=== PATIENT | female | born 1995 | race Caucasian/White ===

== ENCOUNTER → 2022-10-03 | Outpatient (CLI) | payer MEDICAID, SELFPAY | END | disposition home or self-care (01) | PROVIDERS: PCP Internal Medicine; Referring Provider Obstetrics & Gynecology; Visit Provider Obstetrics & Gynecology | DX: L29.9 Pruritus, unspecified (principal); I82.409 Acute embolism and thrombosis of unspecified deep veins of unspecified lower extremity | CPT/HCPCS: 36415 ==

== ENCOUNTER 2023-03-03 07:30 | Day surgery (SDC) | payer MEDICAID, SELFPAY ==
--- NOTE | 2023-03-03 07:40 | PCM.HP.BLA ---
History and Physical Date of Admission: 03/03/23 R#: [id number] Acct: [id number] Name: CALVIN ROE Rep #: [id number] : 1995 Provider: Dr. Jazmine Lobo MD Age/Sex: 27/F Location: [facility] [place] Status: Signed Intake Vital Signs 10/09/2314:51 02/20/2313:22 02/20/2313:24 Height 5 ft 3 in 5 ft 3 in 5 ft 3 in Weight: 223 lb 4 oz BMI 39.5 BP 124/85 H Intake Visit Reasons: Preop BS Allergies morphine Allergy (Verified 02/20/23 13:23) Hives Medications bupropion HCl 200 mg tablet,12 hr sustained-release (Wellbutrin SR) 450 mg PO DAILY 10/03/22 [History Confirmed 02/20/23] levonorgestrel 20.4 mcg/24 hrs (8 yrs) 52 mg intrauterine device (Liletta) 1 device intrauterine ONCE 10/03/22 [History Confirmed 02/20/23] loratadine 10 mg tablet 10 mg PO DAILY 10/03/22 [History Confirmed 02/20/23] omeprazole 20 mg capsule,delayed release 20 mg PO DAILY 10/03/22 [History Confirmed 02/20/23] Is last menstrual period known: No Post menopausal: No Patient : No : No PFSH Medical History Factor deficiency, coagulation Migraines Seasonal allergies Family History Other Cardiac disorder Diabetes Myocardial infarction Social History adopted: No household members: significant other and children number of children: 4 current occupational status: employed current occupation: [employer] history of recent travel: No sexually active: Yes Smoking Status: Never smoker second hand exposure: Yes alcohol intake: never substance use type: does not use caffeine: Yes seatbelt use: always do you feel safe at home: Yes additional social history: James (boyfriend) works in a factory HPI Preop BS Details: CALVIN ROE is a 27 year old who presents for preop prior to laparoscopic bilateral salpingectomy and iud removal. Female Reproductive History Menopausal Symptoms: No night sweats History Past Pregnancies Del. Date Name GA/Weeks Outcome Route Bth Weight Infant Gen [facility] FOB Unknown Dean 2008 40 live - full term Male Unknown 2013 spontaneous Unknown Caterina 2014 38 live - full term Female Unknown Ezequiel 2016 39 live - full term Male Unknown Ron 2020 ROS Const Constitutional: Denies fatigue, night sweats, weight gain or weight loss ENT ENT: Reports system reviewed and no additional complaints, except as documented Cardio Card: Denies chest pain Resp Resp: Denies cough or dyspnea GI GI: Reports as per HPI; Denies abdominal pain, constipation, nausea or vomiting : Denies nipple discharge, urinary frequency, urinary incontinence, urinary hesitancy, urinary urgency, vaginal discharge, vaginal dryness, vaginal odor or vaginal pruritus Musc Musc: Denies arthralgias, back pain or muscle weakness Skin Skin/Breast: Denies alopecia, change in hair, dry skin, breast mass, breast pain, breast skin changes or nipple discharge Neuro Neuro: Reports system reviewed and no additional complaints, except as documented Psych Psych: Reports system reviewed and no additional complaints, except as documented Endo Endo: Denies cold intolerance, excessive sweating, heat intolerance or polydipsia Lance/Lymph Hematologic/Lymphatic: Denies easy bleeding, Denies easy bruising and Denies lymphadenopathy Exam Const General: cooperative, healthy appearing, comfortable, no acute distress and well developed Orientation: alert [facility] Head: normal to inspection and normocephalic Ears: hearing grossly normal bilaterally and external ears normal Nose: external nose normal and nares normal Face and sinus: normal facial exam Neck Neck: normal visual inspection and no lymphadenopathy Thyroid: thyroid normal Chest Chest palpation & inspection: normal inspection of the chest Resp Effort & Inspection: normal respiratory effort Auscultation: clear to auscultation bilaterally Cardio Rate: regular rate Rhythm: regular rhythm Heart Sounds: S1 normal and S2 normal GI Inspection: normal to inspection and non-distended Palpation: soft and no hepatosplenomegaly General: bladder normal to palpation External Female Exam: normal external appearance and normal appearance of the urethra Urethra: normal appearance of the urethra, normal palpation and no discharge Speculum Exam - Vagina: normal appearance of the vagina and normal vaginal discharge Speculum Exam - Cervix: normal appearance of the cervix and nontender Bimanual Exam- Vagina & Uterus: normal bimanual exam, uterine size normal, bladder normal to palpation, uterine shape normal, No tender, uterine mobility normal, consistency normal, normal palpation and non-tender Bimanual Exam- Adnexa, other: normal adnexae, adnexae mobile, no masses and normal Pelvic Support: normal Musc Other: gross motor intact no deficits, full bilateral strength Skin General: no rashes or lesions noted Neuro General: patient alert, patient awake, moves all extremities and no focal motor deficits Motor: muscle tone normal throughout Extrem General: normal to inspection and no pedal edema Psych Appearance: grossly normal Mental Status: mental status grossly normal Affect: normal affect Speech and Movement: speech and movement normal Coding Level of Care Code No Charge Diagnoses Sterilization Z30.2 Factor deficiency, coagulation D68.9 Assessment and Plan Assessment and Plan (1) Sterilization: Status: Acute Comment: title 10/03. plan lovenox preop day of and postop 1 week caprini risk score 5. 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 I have discussed with the patient the risks, benefits, and alternatives of the procedure which include but are not limited to risks of anesthesia, bleeding, infection, possible damage to bowel, bladder, or surrounding vasculature which could lead to additional surgery to evaluate any complications. Patient agrees to procedure and wishes to proceed. ACOG/uptodate references given for additional information regarding procedure. UPDATE- I have seen the patient and performed any clinically relevant updates to the history and physical exam. Jazmine Lobo MD
[2023-03-03] MEDS: Lactated Ringers 1,000 ML 15 ML IV (08:07)
[2023-03-03] MEDS: Enoxaparin 40 MG/0.4 ML Syringe SC (08:08)
[2023-03-03 08:09] VITALS: BP 127/99; PULSE 83; RESP 16; TEMP 36.6; O2SAT 99; BMI 39.0
[2023-03-03 08:16] LABS: Hematocrit 38.1 % (37-47); Internal QC Validated? YES +Cl - CLEAR BKGD; Mean Corp Hgb Conc 31.5 g/dL (32-36); Mean Corpuscular Hgb 29.1 pg (27.0-32.0); Mean Corpuscular Volume 92.3 fL (81-99); Mean Platelet Vol. 11.3 fl (6.2-12.0); Platelet Count 370 K/mm3 (150-450); Pregnancy, Urine Negative Negative; RBC Distribution Width SD 43.8 fl (35.1-43.9); Red Blood Count 4.13 M/mm3 (4.2-5.4); White Blood Count 9.3 K/mm3 (4.4-11.0)
--- NOTE | 2023-03-03 09:00 | FALS_PTH ---
PATIENT: CALVIN ROE LOC: [facility] [place], [place] U#:[id number] AGE/SX: 27/F ROOM: RE03/03/[address]: Dr. Jazmine Lobo MD : 1995 BED: DIS: 03/03/2023 SPEC #: [id number] RECD: 03/03/23 11:43 STATUS: DANIEL REAnuradha #: [id number] MAITE: 03/03/23 09:[address]: Jazmine Lobo DEPT: SURGICAL PATHOLOGY RECD BY: Kamille Bernstein ENTERED: 03/03/23 12:17 SP TYPE: FALL TUBES OTHR DR: Dr. Tiffanie George, Tissues: Fallopian tube Procedures: Surgery Specimen Level II Surgery Specimen Level IV HEADER OPERATION: Laparoscopic salpingectomy, IUD removal PRE-OP DIAGNOSIS: Sterilization TISSUE SUBMITTED: Bilateral fallopian tubes MICROSCOPIC DIAGNOSIS Right and left fallopian tubes, bilateral salpingectomies: Complete segments of fallopian tubes. One fallopian tube with benign paratubal cyst. AM:elsa 03/04/2023 MICROSCOPIC DESCRIPTION Slides are reviewed. GROSS DESCRIPTION Received in fixative is one container labeled with the patient's name and designated bilateral fallopian tubes. The specimen consists of two fallopian tubes with an average length of 8.0 cm and has an average diameter of 0.6 cm. Both fallopian tubes have normal fimbriated ends. No mass lesions are identified. [employer]ner sections are submitted in two cassettes as follows: 1 - one fallopian tube, 2??the other fallopian tube. / AM:elsa 03/03/2023 TC:5 CPT: 22861 x2, 83577
--- NOTE | 2023-03-03 09:48 | PCM.OPRPT ---
Problems Associated Problem List Diagnoses (1) Sterilization: (2) Deep venous thrombosis: (3) Factor deficiency, coagulation: Report of Operation Date of Procedure: 03/03/23 Pre-Operative Diagnosis: see problem list Post-Operative Diagnosis: same Surgery/Procedure Performed:: laparoscopic bilateral salpingectomy iud removal Description of Surgical Findings:: nl uterus tubes ovaries Surgeon: Jazmine Lobo Type of Anesthesia: General and Local Specimen's removed: tubes Drains: none Estimated Blood Loss (mL): 50 Fluids Replaced: crystalloid Description of Procedure: Patient was taken in the operating room and was placed under general anesthesia was prepped and draped in normal sterile fashion in the dorsal lithotomy position. Bladder was drained of clear urine and SCDs were on preoperatively. iud strings grasped and device pulled and removed without complication. Uterus was sounded and a uterine manipulator was placed after dilating. Attention was then paid to the abdominal portion of the procedure and the umbilicus was elevated with towel clamps and injected with Marcaine and after a 5 mm incision was made and the Veress needle was entered into the abdomen confirmed to be intra-abdominal with a low opening pressure of less than 5 mmHg. Abdomen was insufflated with CO2 gas and a 5 mm optical trocar was placed under direct visualization. A 5 mm port suprapubically was placed under direct visualization. Uterus was well visualized and bilateral fallopian tubes identified and bilateral tubes were elevated and transecting across the mesosalpinx and the attachment to the uterine corpus bilaterally the tubes were removed without complication. Excellent hemostasis was noted. Fallopian tubes were removed through the lower port site without complication. Liver and upper abdomen were visualized notably within normal limits and no other gross abnormalities were seen in the abdomen. All instruments removed from the abdomen after gas was desufflated. Port sites were closed with 3-0 Monocryl Steri's and op sites were applied. All instruments removed from the vagina and patient was awoken and taken recovery in stable condition. Grafts/Implants Used: none Complications none Admit VTE Documentation VTE Present on Admission: No VTE Mechan Device Prophylaxis: SCD's Multi Select Codes Urinary/Genital Urinary/Genital CPT Codes: 40653 Laproscopic BS/O and Other Procedure See Report (41513 iud removal)
--- NOTE | 2023-03-03 09:49 | DCINST_ITS ---
Discharge Instructions Diet Discharge Diet: No restrictions Activity Discharge Activity: Return to Normal Activity, May Not Drive (for 2 weeks or while taking narcotic pain meds.), May Shower and May Take a Tub Bath (in 7 days) May resume sexual activity in: 1 week Weight Bearing Status: Full weight bearing Dressing / Incision Call your doctor if your incision/area has: Continuous Slow Oozing, Sudden Increased Bleeding, Increased Pain/ Swelling, Increased Redness and Foul Smelling Discharge Call your doctor if you observe: Fever of 101 or Higher, Using more than 1 pad per hour, Shortness of breath, Chest pain and Uncontrolled pain Suture Line Care: Avoid Pulling/Pushing and Avoid Pinching/Bending Remove Dressing in: 1 week (if present) Cleanse incision/area with: Soap & Water and Keep Dressing Clean & Dry Follow Up Care When: Call to make an appointment with your doctor for a fu/incision check in 1- 2 weeks. Test Results: Test results from this visit will be discussed in further detail at your follow- up appointment, if applicable. Discharge Plan Admission Attending Provider: Jazmine Lobo Primary Care Provider: Tiffanie George Discharge Orders/Prescriptions Prescriptions: New oxycodone-acetaminophen [Percocet] 5-325 mg tablet 1 tab PO Q6H PRN (Reason: pain) 7 Days Qty: 10 0RF naproxen [naproxen] 500 mg tablet 500 mg PO BID PRN PRN (Reason: Pain) Qty: 30 1RF enoxaparin [Lovenox] 40 mg/0.4 mL syringe 40 mg subcut DAILY 7 Days Qty: 2.8 1RF Discontinued Liletta 20.4 mcg/24 hrs (8 yrs) 52 mg intrauterine device 1 device intrauterine ONCE Rx Instructions: as a single dose APR 2021 No Action bupropion HCl [Wellbutrin SR] 200 mg tablet sustained-release 12 hr 450 mg PO QHS omeprazole 20 mg capsule,delayed release(DR/EC) 20 mg PO QHS loratadine 10 mg tablet 10 mg PO DAILY multivitamin [Daily Multi-Vitamin] Tablet 1 tab PO DAILY Referrals / Follow Up: Tiffanie George, [Primary Care Provider] - Disposition Disposition (needs filled in before D/C Order can be placed): Home, Self Care
[2023-03-03] MEDS: Bupivacaine 0.25% 30 ML Vial (10:25)
[2023-03-03 10:51] VITALS: BP 127/99; BP 149/108; PULSE 64; RESP 16; TEMP 36.2; O2SAT 94
[2023-03-03 11:01] VITALS: BP 127/99; BP 136/96; PULSE 62; RESP 16; O2SAT 96
[2023-03-03 11:15] VITALS: BP 127/99; BP 136/94; PULSE 65; RESP 16; O2SAT 96
--- NOTE | 2023-03-03 11:17 | SUR.PHASEI ---
pt sleeping, calm
[2023-03-03 11:24] VITALS: BP 127/99; BP 128/107; PULSE 77; RESP 16; TEMP 36.1; O2SAT 93
[2023-03-03] MEDS: Oxycodone/Apap 5/325 Tablet PO (11:38)
[2023-03-03 12:40] VITALS: BP 127/99; BP 138/95; PULSE 77; RESP 16; TEMP 36.5; O2SAT 99
== END 2023-03-03 12:56 | disposition home or self-care (01) ==
LOC: SDC 07:32 → AC 07:33
PROVIDERS: PCP Internal Medicine; Referring Provider Obstetrics & Gynecology; Visit Provider Obstetrics & Gynecology
PROC: (CPT 58661; principal; 2023-03-03 08:45)
DX: Z30.2 Encounter for sterilization (principal); D68.2 Hereditary deficiency of other clotting factors; Z30.432 Encounter for removal of intrauterine contraceptive device; N83.8 Other noninflammatory disorders of ovary, fallopian tube and broad ligament; K21.9 Gastro-esophageal reflux disease without esophagitis; Z79.01 Long term (current) use of anticoagulants; Z87.891 Personal history of nicotine dependence
CPT/HCPCS: 58661; 58301; 00840; 81025; 85027; 86850; 86900; 86901; 88302; 88305; J7120; J2405